=== PATIENT | female | born 1985 | race Hispanic/Latino ===

== ENCOUNTER 2016-10-17 01:36 | Inpatient (IN) | payer OTHER ==
[2016-10-17 02:54] VITALS: BMI 31.2
[2016-10-17] MEDS: Lactated Ringer's 1,000 ML IV SCH ×2 (03:00→03:45)
[2016-10-17] MEDS ORDERED: Lactated Ringer's 1,000 ML IV SCH (03:00)
[2016-10-17] MEDS ORDERED: Ampicillin 2 GM in Sodium Chloride 0.9% 100 ML IVPB ONE (03:15)
[2016-10-17 03:43] LABS: BASO % 0.3 % (0.0-2.0); EOS # 0.1 K/uL (0.0-0.7); EOS % 1.2 % (0.0-4.0); HEMATOCRIT 36.8 % (34.0-47.0); LYMPH # 2.6 K/uL (1.0-4.3); LYMPH % 23.7 % (20.0-40.0); MEAN CELL VOLUME 92.9 fl (81.0-99.0); MEAN CORPUSCULAR HEMOGLOBIN 31.7 pg (27.0-31.0); MEAN CORPUSCULAR HGB CONC 34.1 g/dL (33.0-37.0); MEAN PLATELET VOLUME 9.2 fl (7.2-11.7); MONO # 0.9 K/uL (0.0-0.8); MONO % 7.8 % (0.0-10.0); NEUT # 7.4 K/uL (1.8-7.0); NRBC % 0.1 % (0.0-0.0); RED CELL DISTRIBUTION WIDTH 14.7 % (11.5-14.5)
[2016-10-17] MEDS ORDERED: Bupivacaine HCl 0.25% PF (10 ml) Inj ONE (04:09)
[2016-10-17] MEDS ORDERED: Fentanyl/Bupivacaine HCl 250 ML EPI ONE (04:09)
[2016-10-17] MEDS ORDERED: Lidocaine 1% Inj (20ml) ONE (04:34)
[2016-10-17] MEDS ORDERED: Oxytocin 30 units/LR 500ML 500 ML IV ONE ×2 (04:34→08:18)
--- NOTE | 2016-10-17 05:49 | OBADHP ---
Datetime: 10/17/2016 05:43 Admit Comment, IP Provider: since when pt came in GBS status unk IV ampicillin was given. Extremities - PN: Normal Abdomen - PN: Abnormal Back - PN: Normal Breast - PN: Normal Lungs - PN: Normal Heart - PN: Normal Thyroid - PN: Normal Neurologic - PN: Normal HEENT - PN: Normal FHR - Baseline A Provider: 150's Membranes, Provider: Intact Contraction Comments Provider: q2-3 min Comments, ACOG Physical Exam: Abd soft gravid, NT ext no calf tenderness Gestation - Est Wks by US: 39.0 IP Hx Assessment: The History has been Reviewed and is Current IP Chief Complaint: Uterine contractions NICHD Variability Prov Fetus A: Moderate 6-25bpm NICHD Accel Fetus A IP Provider: 10X10 NICHD Decel Fetus A IP Provider: Early Dilatation, Provider: 6cm Effacement, Provider: 75% Genitourinary Exam: Normal DTRs - PN: Normal EGA AdmitDate IP: 39.0 IP Adm Impression: Term, intrauterine ; Active labor IP Admit Plan: Admit to unit; Initiate labor protocol
[2016-10-17] MEDS ORDERED: AMPicillin 1 GM in Sodium Chloride 0.9% 100 ML IVPB SCH (07:00)
--- NOTE | 2016-10-17 08:25 | OBADHP ---
Datetime: 10/17/2016 05:43 EGA AdmitDate IP: 39.0 Datetime: 10/17/2016 02:31 Admit Comment, IP Provider: 31-year-old 0-2 at 39 weeks gestational age presents to OB ED comp laining of contractions. Patient denies any vaginal bleeding or leakage of fluids. Patient reports go od movement. Patient reports normal care. Past medical history none Past surgical history none Medications vitamins No known drug allergies Obstetrical history full-term normal spontaneous vaginal delivery 2 Social history no tobacco, no drugs, no alcohol Physical exam: Refer to physical exam findings Assessment: 31-year-old 002 at 39 weeks gestational age in active labor. Both maternal well-being and fe krystle well-being reassuring at this time. Plan: Admit to labor and delivery for management. Patient's primary physician notified. Patient requesti ng epidural, anesthesia notified. Pelvic Type - PN: Adequate Extremities - PN: Normal Abdomen - PN: Normal Back - PN: Normal Breast - PN: Normal Lungs - PN: Normal Heart - PN: Normal Thyroid - PN: Normal Neurologic - PN: Normal HEENT - PN: Normal General - PN: Normal FHR - Baseline A Provider: 140s-150s Membranes, Provider: Intact Vital Signs Provider: Reviewed; Within Normal Limits IP Chief Complaint: Uterine contractions NICHD Variability Prov Fetus A: Moderate 6-25bpm NICHD Accel Fetus A IP Provider: 15X15 FHR Category Provider Fetus A: 31-year-old 002 at 39 weeks gestational age presents to OB ED c omplaining of contractions. Patient denies any vaginal bleeding or leakage of fluids. Patient reports good movement. Patient reports normal care. Past medical history none Past surgical history none Medications vitamins No known drug allergies Obstetrical history full-term vaginal delivery 2 Social history no tobacco, no drugs, no alcohol Physical exam: Refer to physical findings Assessment: 31-year-old 002 at 39 weeks gestational age in active labor. Plan: Admit patient for management of labor. Patient's primary physician notified. Patient requesting ep idural, contact anesthesia. Both maternal well-being and well-being reassuring at this time. NICHD Decel Fetus A IP Provider: None Dilatation, Provider: 4-5 Effacement, Provider: 25 Station, Provider: -2 Genitourinary Exam: Normal DTRs - PN: Normal IP Adm Impression: Term, intrauterine ; Active labor IP Admit Plan: Admit to unit; Initiate labor protocol
--- NOTE | 2016-10-17 09:36 | OBDS ---
MATERNAL INFORMATION Estimated Blood Loss (ml): 250cc Maternal Complications: None Provider Comments: Delivered a living Baby girl, appears term cried spontaneously nuchal cord x1 loo se undone prior to full delivery, Peds in attendence 9/9, AF meconium stained Placenta complete and intact Perineal laceration as above repair. Tolerated procedure well no complications Uterus co ntracted welll Rectal done no defects LABOR SUMMARY EDC: 10/24/2016 00:00 No. Babies in Womb: 1 LABOR INFORMATION Reason for Induction: Not Applicable Onset of Labor: 10/17/2016 23:00 Group B Beta Strep: Done, Result Unknown Steroids Given: None Reason Steroids Not Administered: Not Applicable Other Reason Not Administered: n/a MEMBRANES Membranes Rupture Method: Spontaneous Rupture of Membranes: 10/17/2016 07:50 Amniotic Fluid Color: Clear Amniotic Fluid Amount: Moderate Amniotic Fluid Odor: None VAGINAL DELIVERY Episiotomy: None Laceration Extension: First Degree Laceration Type: Perineal Laceration Repair: Yes Laceration Repair Note: small perineal 1st dg laceration noted repaired with 2-0 chromic suture wiht out any complications Sponge Count Correct: Yes Sharps Count Correct: Yes Count Comment: count correct BABY A INFORMATION Forceps: N/A Vacuum Extraction: N/A Shoulder Dystocia : No PRESENTATION/POSITION BABY A Presentation: Cephalic Cephalic Presentation: Vertex Vertex Position: quintin Breech Presentation: N/A PLACENTA INFORMATION BABY A Placenta Method of Delivery: Spontaneous Placenta Status: Delivered CORD INFORMATION BABY A Nuchal Cord : Around Neck x1, Loose ASSESSMENT BABY A Complications: None
[2016-10-17] MEDS ORDERED: Oxycodone/Acetaminophen 5/325 mg Tab PO PRN ×2 (10:41)
[2016-10-17 11:03] VITALS: BP 125/66; PULSE 90; RESP 19; TEMP 98.2; O2SAT 100
[2016-10-18 06:40] LABS: HEMATOCRIT 35.2 % (34.0-47.0); MEAN CELL VOLUME 94.8 fl (81.0-99.0); MEAN CORPUSCULAR HEMOGLOBIN 31.1 pg (27.0-31.0); MEAN CORPUSCULAR HGB CONC 32.8 g/dL (33.0-37.0); RED CELL DISTRIBUTION WIDTH 14.9 % (11.5-14.5); WHITE BLOOD COUNT 13.6 K/uL (4.8-10.8)
--- NOTE | 2016-10-18 12:33 | OBDCSUM ---
Datetime: 10/18/2016 12:23 Discharged to, Provider: Home Follow up at, Provider: Disch Instr Activity: May be up to bathroom; May be up for meals; May Shower Disch Instr Diet: Regular Discharge Instructions, Provider: Specific instructions as noted Discharge Diagnosis, Provider: Term Delivered Discharge Time: 10/18/2016 12:24 Follow up in weeks, Provider: 1 week Disch Referrals: None Disch Activity Restrictions: No exercising; No lifting; Minimize walking; Minimize stair-climbing; N o sexual activity; Nothing in vagina - [place], tampons, douche Discharge Comment, Provider: dc home today rto 5-6weeks call office if any problems Contraception after Delivery: Undecided
--- NOTE | 2016-10-18 12:57 | OBPPN ---
Datetime: 10/18/2016 12:53 PP Pain Prov: Within normal limits PP Nausea Prov: Present PP Flatus Prov: Yes PP BM Prov: No PP Breasts Prov: Normal PP Heart Prov: Normal PP Lungs Prov: Normal PP Abdomen/Uterus Prov: Normal PP Lochia Prov: Normal PP Vulva/Perineum Prov: Normal PP CVA Tenderness Prov: Normal PP Extremities Prov: Normal PP Progress Prov: Normal PP Impression Prov: Normal progression PP Plan Prov: Continue present management PP Progress Note Prov: stable ppd1 continue present care IP PP Procedures: None Vital Signs Provider PP: Reviewed; Within Normal Limits
[2016-10-19] MEDS ORDERED: Benzocaine/Menthol SPRAY TOP PRN (10:06)
--- NOTE | 2016-10-19 11:04 | OBPPN ---
Datetime: 10/19/2016 10:59 PP Pain Prov: Within normal limits PP Pain Prov comment: No SOB chest pain or leg pain PP Nausea Prov: Denies PP Flatus Prov: Yes PP BM Prov: Yes PP Breasts Prov: Normal PP Heart Prov: Normal PP Lungs Prov: Normal PP Abdomen/Uterus Prov: Abnormal PP Lochia Prov: Normal PP Vulva/Perineum Prov: Abnormal PP CVA Tenderness Prov: Normal PP Extremities Prov: Normal PP C/S Incision Prov: Not Applicable PP Progress Prov: Normal PP Comments Phys Exam Prov: Abd soft NT, fundus firm below the umb. Ext no calf tenderness PP Impression Prov: Normal progression PP Plan Prov: Discharge PP Progress Note Prov: D/C home and follow up in office 4-6 wks IP PP Procedures: None Vital Signs Provider PP: Reviewed
--- NOTE | 2016-10-19 11:06 | OBDCSUM ---
Datetime: 10/19/2016 11:03 Discharged to, Provider: Home Follow up at, Provider: Dr Tavares Disch Instr Activity: Bedrest; May be up to bathroom; May be up for meals; May Shower Disch Instr Diet: Regular Discharge Instructions, Provider: Routine instructions given Discharge Diagnosis, Provider: Term Delivered Discharge Time: 10/19/2016 11:03 Follow up in weeks, Provider: 4-6 wks Disch Referrals: None Contraception discussed, Prov: Yes Disch Activity Restrictions: No exercising; No lifting; No driving; Minimize walking; Minimize stair -climbing; No sexual activity; Nothing in vagina - [place], tampons, douche Discharge Comment, Provider: instructions give Contraception after Delivery: Undecided
== END 2016-10-19 13:40 | disposition home or self-care (01) | DRG 373 ==
LOC: H.EROB2 01:36 → H.L&D 03:09 → H.OB/GYN 14:31
PROVIDERS: ADMIT Specialist; ATTEND Specialist
PROC: 10E0XZZ Delivery of Products of Conception, External Approach (ICD-10-PCS; principal; 2016-10-17)
PROC: 0HQ9XZZ Repair Perineum Skin, External Approach (ICD-10-PCS; 2016-10-17)
PROC: 4A1HXCZ Monitoring of Products of Conception, Cardiac Rate, External Approach (ICD-10-PCS; 2016-10-17)
DX: O69.81X0 Labor and delivery complicated by cord around neck, without compression, not applicable or unspecified (principal); O70.0 First degree perineal laceration during delivery; Z37.0 Single live birth; Z3A.39 39 weeks gestation of pregnancy